=== PATIENT | female | born 1960 | race Caucasian/White ===

== ENCOUNTER 2019-11-07 19:13 | Inpatient (IN) | payer OTHER, SELFPAY ==
[~2019-11-07] VITALS: Ht 162.6 cm; Wt 63.6 kg
[2019-11-07] MEDS ORDERED: MULTCAP PO ×2 (19:42)
[2019-11-07] MEDS ORDERED: fentaNYL 100 MCG/2 ML INJECTION (J3010) IV ONE (19:45)
[2019-11-07] MEDS ORDERED: ONDANSETRON 4MG/2ML VIAL (J2405) IV ONE (19:45)
[2019-11-07 19:46] LABS: BASO % 0.2 % (0.0-1.0); HEMATOCRIT 36.7 % (36.0-47.0); HEMOGLOBIN 12.3 g/dl (12.0-15.5); LYMPH # 0.7 10^3/uL (1.5-5.0); LYMPH % 6.4 % (24.0-44.0); MEAN CORPUSCULAR HEMOGLOBIN 31.4 pg (27.0-33.0); MEAN CORPUSCULAR HGB CONC 33.5 g/dl (32.0-36.5); MEAN CORPUSCULAR VOLUME 93.6 fl (80.0-96.0); MONO # 0.7 10^3/uL (0.0-0.8); MONO % 6.5 % (0.0-5.0); NEUTROPHILS # 9.7 10^3/uL (1.5-8.5); NEUTROPHILS % 86.5 % (36.0-66.0); PLATELET COUNT, AUTOMATED 264 10^3/uL (150-450); RED BLOOD COUNT 3.92 10^6/uL (4.00-5.40); WHITE BLOOD COUNT 11.2 10^3/uL (4.0-10.0)
[2019-11-07 19:57] LABS: PROTHROMBIN TIME 12.9 SECONDS (11.8-14.0)
[2019-11-07 20:15] LABS: BLOOD UREA NITROGEN 10 MG/DL (7-18); CALCIUM LEVEL 8.9 MG/DL (8.8-10.2); CARBON DIOXIDE LEVEL 23 MEQ/L (21-32); CHLORIDE LEVEL 99 MEQ/L (98-107); CK-MB VALUE MASS 1.1 NG/ML (<3.6); CPK CREATINE PHOSPHOKINASE 102 U/L (26-192); CREATININE FOR GFR 0.64 MG/DL (0.55-1.30); GLOMERULAR FILTRATION RATE > 60.0 (>45); GLUCOSE, FASTING 159 MG/DL (70-100); MB/CK RELATIVE INDEX 1.08 (< OR =4); POTASSIUM SERUM 3.7 MEQ/L (3.5-5.1); SODIUM LEVEL 132 MEQ/L (136-145)
[2019-11-07] MEDS ORDERED: LIDOCAINE 2% 5ML JELLY UROJET TOP ONE (20:30)
[2019-11-07] MEDS ORDERED: LORazepam 2 MG/ML VIAL (J2060) IV STA (20:49)
[2019-11-07] MEDS ORDERED: HEPARIN SOD (PORCINE) 5000 UNITS/ML VIAL SC ONE (21:00)
[2019-11-07] MEDS ORDERED: HYDROMORPHONE HCL 0.5 MG/ 0.5 ML SYRINGE (J1170 PER 1) IV PRN (21:00)
[2019-11-07] MEDS: HYDROMORPHONE HCL 0.5 MG/ 0.5 ML SYRINGE (J1170 PER 1) IV PRN (21:20)
[2019-11-07] MEDS ORDERED: D5W/0.45% SODIUM CHLORIDE 1,000 ML IV SCH (22:30)
--- NOTE | 2019-11-07 22:56 | HPEPDOC ---
General Date of Admission Nov 07, 2019 at 20:53 Date of Service: Nov 07, 2019 Chief Complaint The patient is a 59-year-old female Who presented to the emergency room with right hip pain History of Present Illness Patient is a 59-year-old female with no significant past medical history who presented to the emergency room after she had complained of significant right hip pain. Patient reported that today she was with her grandson who was standing on a chair. Patient reported that her grandson was about to fall out of the chair, so she went to go catch him and subsequently fell on her right hip and landed on the hardwood floor of her home. Patient reported that immediately she be ENT experience 10/10 pain, sharp / burning pain. Patient reported that the pain was occurring at her right hip and right groin. Patient reported that any movement caused worsening of the pain. The only alleviation that she noted was with medications received by EMS. Patient denied any loss of consciousness. Denied any head trauma. Denied chest pain, shortness of breath, palpitations, cough, nausea, vomiting, abdominal pain, constipation, diarrhea, urinary discomfort or experiencing any fevers or chills recently. Home Medications Scheduled Multivitamin (Multivitamins) 1 Each Capsule, 1 CAP PO DAILY, (Reported) Allergies Coded Allergies: morphine (Verified Allergy, Mild, 11/07/19) ciprofloxacin (Verified Allergy, Unknown, 11/07/19) erythromycin base (Verified Allergy, Unknown, 11/07/19) Past Medical History Medical History Patient denies any past medical history Surgical History Patient denies any prior surgeries Family History - Mother with a history of stomach problems, coronary artery disease requiring type past and breast cancer - Father with a history of heart attack Social History - Denies the use of tobacco or illicit drugs; patient reports use of social alcohol - Denies recent travel or sick contacts - Lives with in [place] - Occupation; 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 Review of Systems Other systems 10 point review of systems complete, all negative otherwise stated in HPI Vital Signs - Vitals: BP 132/70, HR 84, RR 20, Sat 97%RA, Temp 100.2F - General: Lying in bed, appears comfortable, speaking in full sentences, AAOx3 - HEENT: NC, AT, PERRLA, EOMI - CVS: RRR, +S1S2 - Lungs: Fair air entry bilaterally, No appreciable wheezing / rales / rhonchi - Abdomen: Soft, Non-distended, Non-tender - Extremities: No lower extremity edema, No calf tenderness, - Neuro: No focal motor or sensory deficit, right hip with restricted range of motion - 2/2 pain - Skin: No visible rashes Laboratory Data Labs 24H Laboratory Tests 2 11/07/19 19:35: Immature Granulocyte % (Auto) 0.4, Neutrophils (%) (Auto) 86.5H, Lymphocytes (%) (Auto) 6.4L, Monocytes (%) (Auto) 6.5H, Eosinophils (%) (Auto) 0.0, Basophils (%) (Auto) 0.2, Neutrophils # (Auto) 9.7H, Lymphocytes # (Auto) 0.7L, Monocytes # (Auto) 0.7, Eosinophils # (Auto) 0.0, Basophils # (Auto) 0.0, Nucleated Red Blood Cells % (auto) 0.0, Prothrombin Time 12.9, Prothromb Time International Ratio 1.00, Anion Gap 10, Glomerular Filtration Rate > 60.0, Calcium Level 8.9, Total Creatine Kinase 102, Creatine Kinase MB 1.1, Creatine Kinase MB Relative Index 1.08 11/07/19 21:29: Urine Color YELLOW, Urine Appearance CLOUDYH, Urine pH 7.0, Urine Specific [place] 1.014, Urine Protein NEGATIVE, Urine Glucose (UA) 1+H, Urine Ketones 1+H, Urine Blood NEGATIVE, Urine Nitrite NEGATIVE, Urine Bilirubin NEGATIVE, Urine Urobilinogen 0.2, Urine Leukocyte Esterase NEGATIVE, Urine WBC (Auto) 1, Urine RBC (Auto) 8H, Urine Hyaline Casts (Auto) 0, Urine Bacteria (Auto) 3+H, Urine Squamous Epithelial Cells 0, Urine Amorphous Sediment SMALLH, Urine Sperm (Auto) CBC/BMP Laboratory Tests 11/07/19 19:35 Plan / VTE VTE Prophylaxis Ordered?: Yes Plan Plan Right hip pain - 2/2 right femur fracture - likely 2/2 mechanical fall - Presented to the ER with complaints of right hip pain after a mechanical fall - Physical with restricted movement; reports pain is better tolerated - Lab work is relatively unrevealing - Chest x-ray was reviewed by myself and does not reveal any significant abnormalities - X-ray of hip and femur were appreciated; does reveal proximal fracture of the femur - EKG was reviewed and was in normal sinus rhythm with a QTC of 416, no ST segment deviations or T-wave inversions were noted - Case was discussed with Dr. George, orthopedic surgery; patient will be taken to the operating room tomorrow morning - Currently patient is medically optimized for low risk procedure with low risk - Will keep patient NPO post-midnight and start IV fluids while NPO Leukocytosis - likely 2/2 reactive etiology, less likely 2/2 infectious etiology - Review of systems negative for any source of infection - Currently patient is hemodynamically stable and afebrile - Will hold off on antibiotic therapy at this time Hyponatremia (mild) - like 2/2 hypotonic possibly 22/ hypovolemic / euvolemic etiology - Will check osmolality, electrolytes, thyroid function, cortisol - Will start IV fluid hydration DVT prophylaxis - Will give single dose of Heparin SQ, providing coverage for 8 hours MAXINE VALIENTE MD Nov 07, 2019 22:56
--- NOTE | 2019-11-07 23:06 | CR.PDOC ---
General Date of Consultation: Nov 07, 2019 Primary Care Physician: MAXINE VALIENTE MD Attending Physician: MIS BINGHAM MD Consultation REASON FOR CONSULTATION/CHIEF COMPLAINT: R hip fracture. HISTORY OF PRESENT ILLNESS: Patient is a 59 y/o female who sustained a mechanical fall from standing height resulting in immediate right hip pain and inability to bear weight. She denies any antecedent hip pain. Denies any associated numbness, tingling, or burning sensations. ALLERGIES: Please see below. HOME MEDICATIONS: Please see below. PAST MEDICAL HISTORY: 1. hypertension PAST SURGICAL HISTORY: none FAMILY HISTORY: non contributory SOCIAL HISTORY: no tobacco, alcohol, or illicit drug use. Operates a day care center. Lives with . REVIEW OF SYSTEMS: CONSTITUTIONAL: No fevers, chills, or night sweats. HEENT: + glasses CARDIOVASCULAR: No chest pain, palpitations. RESPIRATORY: No cough, wheeze. MUSCULOSKELETAL: R hip pain per HPI. GASTROINTESTINAL: No nausea, vomiting, diarrhea. NEUROLOGICAL: No headache, numbness, burning sensations. PHYSICAL EXAMINATION: VITAL SIGNS: Please see below. GENERAL APPEARANCE: Well nourished female, appears stated age, no acute distress. HEENT: Normocephalic, atraumatic. RESPIRATORY: Non labored breathing. CARDIOVASCULAR: 2+ DP/PT pulses, BCR all digits RLE. EXTREMITIES: Focused exam of the R hip demonstrates no open wounds or abrasions. The hip is held in a flexed, externally rotated position. Patient is able to flex/extend toes and ankle. NEUROLOGICAL: Sensation and motor intact in RLE femoral, tibial, sural, saphenous, SPN, DPN distribution. Radiographs: Plain radiographs of the pelvis, right hip and right femur demonstrate a displaced intertrochanteric femur fracture ASSESSMENT: 59 y/o female with a displaced R proximal femur fracture PLAN: I had a long discussion with the patient about the natural history of her injury. The risks, benefits, indications, and alternatives of operative and nonoperative management were discussed and I recommended surgical management with R hip cephalomedullary nail fixation. The risks of infection, nerve/blood vessel injury, thromboembolic event, nonunion, malunion, and hardware failure were discussed and the patient expressed understanding and provided written informed consent for R hip open versus closed reduction and cephalomedullary nail fixation. I counseled the patient that I will be her operating surgeon but her follow up care will be conducted by [facility]. She expressed understanding with this arrangement and agreed to proceed. -NPO at midnight -Surgery tomorrow pending clearance -WBAT post operatively Vital Signs/I&O Vital Signs Date Time Temp Pulse Resp B/P (MAP) Pulse Ox O2 Delivery O2 Flow Rate FiO2 11/07/19 21:34 100.2 91 20 160/80 97 Room Air Laboratory Data Labs 24H Laboratory Tests 2 11/07/19 19:35: Immature Granulocyte % (Auto) 0.4, Neutrophils (%) (Auto) 86.5H, Lymphocytes (%) (Auto) 6.4L, Monocytes (%) (Auto) 6.5H, Eosinophils (%) (Auto) 0.0, Basophils (%) (Auto) 0.2, Neutrophils # (Auto) 9.7H, Lymphocytes # (Auto) 0.7L, Monocytes # (Auto) 0.7, Eosinophils # (Auto) 0.0, Basophils # (Auto) 0.0, Nucleated Red Blood Cells % (auto) 0.0, Prothrombin Time 12.9, Prothromb Time International Ratio 1.00, Anion Gap 10, Glomerular Filtration Rate > 60.0, Calcium Level 8.9, Total Creatine Kinase 102, Creatine Kinase MB 1.1, Creatine Kinase MB Relative Index 1.08 11/07/19 21:29: Urine Color YELLOW, Urine Appearance CLOUDYH, Urine pH 7.0, Urine Specific [place] 1.014, Urine Protein NEGATIVE, Urine Glucose (UA) 1+H, Urine Ketones 1+H, Urine Blood NEGATIVE, Urine Nitrite NEGATIVE, Urine Bilirubin NEGATIVE, Urine Urobilinogen 0.2, Urine Leukocyte Esterase NEGATIVE, Urine WBC (Auto) 1, Urine RBC (Auto) 8H, Urine Hyaline Casts (Auto) 0, Urine Bacteria (Auto) 3+H, Urine Squamous Epithelial Cells 0, Urine Amorphous Sediment SMALLH, Urine Sperm (Auto) CBC/BMP Laboratory Tests 11/07/19 19:35 Allergies Coded Allergies: morphine (Verified Allergy, Mild, 11/07/19) ciprofloxacin (Verified Allergy, Unknown, 11/07/19) erythromycin base (Verified Allergy, Unknown, 11/07/19) Home Medications Scheduled Multivitamin (Multivitamins) 1 Each Capsule, 1 CAP PO DAILY, (Reported) MIS BINGHAM MD Nov 07, 2019 23:06
[2019-11-07 23:10] VITALS: BP 148/90
[2019-11-07] MEDS: D5W/0.9% SODIUM CHLORIDE 1,000 ML IV SCH (23:18)
[2019-11-07] MEDS: ACETAMINOPHEN TAB 650MG DOSE (2X325MG) PO PRN (23:19)
[2019-11-07 23:27] LABS: FREE T4 1.11 NG/DL (0.76-1.46); THYROID STIMULATING HORMONE 2.1 uIU/ML (0.358-3.740)
[2019-11-08] VITALS (7 sets, daily range): BP systolic 125–142; BP diastolic 74–89
[2019-11-08] MEDS ORDERED: ceFAZolin SOD 2 GM in IV 1 EA IV ONE (06:00)
[2019-11-08 06:58] LABS: BASO % 0.3 % (0.0-1.0); EOS % 0.3 % (0.0-3.0); HEMATOCRIT 34.7 % (36.0-47.0); HEMOGLOBIN 11.5 g/dl (12.0-15.5); LYMPH # 1.5 10^3/uL (1.5-5.0); LYMPH % 18.4 % (24.0-44.0); MEAN CORPUSCULAR HEMOGLOBIN 31.9 pg (27.0-33.0); MEAN CORPUSCULAR HGB CONC 33.1 g/dl (32.0-36.5); MEAN CORPUSCULAR VOLUME 96.4 fl (80.0-96.0); MONO % 12.9 % (0.0-5.0); NEUTROPHILS # 5.4 10^3/uL (1.5-8.5); NEUTROPHILS % 67.8 % (36.0-66.0); PLATELET COUNT, AUTOMATED 237 10^3/uL (150-450); WHITE BLOOD COUNT 7.9 10^3/uL (4.0-10.0)
[2019-11-08] MEDS: HYDROMORPHONE HCL 0.5 MG/ 0.5 ML SYRINGE (J1170 PER 1) IV PRN ×3 (07:10→15:35)
[2019-11-08 07:20] LABS: BLOOD UREA NITROGEN 8 MG/DL (7-18); CALCIUM LEVEL 8.2 MG/DL (8.8-10.2); CARBON DIOXIDE LEVEL 27 MEQ/L (21-32); CHLORIDE LEVEL 102 MEQ/L (98-107); CREATININE FOR GFR 0.51 MG/DL (0.55-1.30); GLOMERULAR FILTRATION RATE > 60.0 (>45); GLUCOSE, FASTING 119 MG/DL (70-100); MAGNESIUM LEVEL 2.1 MG/DL (1.8-2.4); POTASSIUM SERUM 3.7 MEQ/L (3.5-5.1); SODIUM LEVEL 134 MEQ/L (136-145)
--- NOTE | 2019-11-08 08:31 | REP ---
Pelvis right hip: Three views. History: Trauma. Findings: AP view of the pelvis shows an intact bony pelvic ring. No pelvic or sacral fracture is seen. There is diffuse osteoporosis. AP and lateral views of the right hip demonstrate a comminuted intertrochanteric fracture of the right hip in varus. Left hip is unremarkable. Impression: Comminuted intertrochanteric right hip fracture in varus position. Electronically Signed by Parminder Acosta MD 11/08/2019 08:22 A
--- NOTE | 2019-11-08 08:32 | REP ---
Right femur series: Three views. History: Trauma. Findings: Three views of the right femur demonstrate a comminuted intertrochanteric fracture in varus position at the hip. Femoral diaphysis and distal femur appear intact on these views. There is diffuse osteopenia. Impression: Comminuted intertrochanteric fracture right hip. No distal fracture seen. Electronically Signed by Parminder Acosta MD 11/08/2019 08:24 A
--- NOTE | 2019-11-08 08:36 | REP ---
CHEST X-RAY: SINGLE AP VIEW. HISTORY: Preop. No comparison study. FINDINGS: The patient is rotated slightly to the left. Mild cardiomegaly is observed. There is diffuse osteoporosis. The lungs are well inflated and clear. Pleural angles are sharp. Pulmonary vasculature is not felt to be increased on the supine film. IMPRESSION: No active disease. Electronically Signed by Parminder Acosta MD 11/08/2019 08:57 A
[2019-11-08] MEDS: MULTIVITAMINS/MINERALS THERAP 1 TAB PO SCH (08:38)
--- NOTE | 2019-11-08 10:13 | IPNPDOC ---
Date Seen The patient was seen on 11/08/19. Progress Note SUBJECTIVE: 59-year-old female with no significant past medical history, was admitted for right hip fracture status post mechanical fall. She is feeling well in the morning, pain is well controlled, no complaints other than hip pain at this time. She is due for surgery later today and has been medically cleared. She denies any shortness of breath, chest pain, nausea, vomiting, abdominal pain or diarrhea. 10 point review of system is negative except for above PHYSICAL EXAMINATION: VITAL SIGNS: Please see below. GENERAL: No distress HEENT: Normocephalic, atraumatic, moist mucous membranes NECK: Supple CARDIOVASCULAR EXAMINATION: S1, S2, no murmurs RESPIRATORY EXAMINATION: Clear to auscultation, no wheezing ABDOMINAL EXAMINATION: Soft, nontender, nondistended, positive bowel sounds EXTREMITIES: Right hip tender to palpation, right lower extremity shorter than left lower extremity SKIN: No rash NEUROLOGICAL EXAMINATION: Alert and oriented 3, no focal deficits PSYCHIATRIC EXAMINATION: Calm and cooperative LABORATORY DATA, IMAGING STUDIES, MICROBIOLOGY: Please see below. ASSESSMENT AND PLAN: 59-year-old female with no significant past medical history is admitted for right hip fracture status post mechanical fall. PROBLEMS: 1. Right hip fracture: Status post mechanical fall, scheduled for surgical repair later today, medically cleared for procedure, pain control, IV fluids, preoperative antibiotics as per orthopedic surgery. VS, I&O, 24H, Fishbone Vital Signs/I&O Vital Signs Date Time Temp Pulse Resp B/P (MAP) Pulse Ox O2 Delivery O2 Flow Rate FiO2 11/08/19 07:45 18 11/08/19 06:00 98.5 92 142/89 (106) 95 Room Air I&O- Last 24 Hours up to 6 AM 11/08/19 06:00 Intake Total 540 ml Output Total 675 ml Balance -135 ml Laboratory Data 24H LABS Laboratory Tests 2 11/07/19 19:35: Immature Granulocyte % (Auto) 0.4, Neutrophils (%) (Auto) 86.5H, Lymphocytes (%) (Auto) 6.4L, Monocytes (%) (Auto) 6.5H, Eosinophils (%) (Auto) 0.0, Basophils (%) (Auto) 0.2, Neutrophils # (Auto) 9.7H, Lymphocytes # (Auto) 0.7L, Monocytes # (Auto) 0.7, Eosinophils # (Auto) 0.0, Basophils # (Auto) 0.0, Nucleated Red Blood Cells % (auto) 0.0, Prothrombin Time 12.9, Prothromb Time International Ratio 1.00, Anion Gap 10, Glomerular Filtration Rate > 60.0, Calcium Level 8.9, Total Creatine Kinase 102, Creatine Kinase MB 1.1, Creatine Kinase MB Relative Index 1.08 11/07/19 21:29: Urine Color YELLOW, Urine Appearance CLOUDYH, Urine pH 7.0, Urine Specific [place] 1.014, Urine Protein NEGATIVE, Urine Glucose (UA) 1+H, Urine Ketones 1+H, Urine Blood NEGATIVE, Urine Nitrite NEGATIVE, Urine Bilirubin NEGATIVE, Urine Urobilinogen 0.2, Urine Leukocyte Esterase NEGATIVE, Urine WBC (Auto) 1, Urine RBC (Auto) 8H, Urine Hyaline Casts (Auto) 0, Urine Bacteria (Auto) 3+H, Urine Squamous Epithelial Cells 0, Urine Amorphous Sediment SMALLH, Urine Sperm (Auto) 11/07/19 22:58: Osmolality 277L, Thyroid Stimulating Hormone (TSH) 2.100, Free Thyroxine 1.11 11/08/19 06:27: Immature Granulocyte % (Auto) 0.3, Neutrophils (%) (Auto) 67.8H, Lymphocytes (%) (Auto) 18.4L, Monocytes (%) (Auto) 12.9H, Eosinophils (%) (Auto) 0.3, Basophils (%) (Auto) 0.3, Neutrophils # (Auto) 5.4, Lymphocytes # (Auto) 1.5, Monocytes # (Auto) 1.0H, Eosinophils # (Auto) 0.0, Basophils # (Auto) 0.0, Nucleated Red Blood Cells % (auto) 0.0, Anion Gap 5L, Glomerular Filtration Rate > 60.0, Ca lcium Level 8.2L, Magnesium Level 2.1 CBC/BMP Laboratory Tests 11/07/19 19:35 11/08/19 06:27 JAVIER RODRIGUEZ MD Nov 08, 2019 10:13
[2019-11-08] MEDS: D5W/0.9% SODIUM CHLORIDE 1,000 ML IV SCH ×2 (11:27→23:45)
--- NOTE | 2019-11-08 12:48 | ECGEPIP ---
[facility] - ED Test Date: 2019-11-07 Pat Name: KVNG CREWS Department: Room: [place] [address] Gender: Female Program Aide: lynsey : 1960 Requested By: TABITHA IBARRA Order Number: [id number] Reading MD: Tess Gautam Measurements Intervals Jones Rate: 89 P: 68 OR: 164 QRS: 70 QRSD: 89 T: 62 QT: 369 QTc: 450 Interpretive Statements SINUS RHYTHM No prior Electronically Signed on 11-08-2019 12:48:24 EST by Tess Gautam
[2019-11-08] MEDS: ACETAMINOPHEN TAB 650MG DOSE (2X325MG) PO PRN ×2 (15:35→22:28)
[2019-11-08] MEDS ORDERED: LIDOCAINE 2% INJ 100 MG/5 ML SDV (FOR ANES.) As Ordered ONE (16:02)
[2019-11-08] MEDS ORDERED: propofoL 200 MG/20 ML VIAL As Ordered ONE (16:02)
[2019-11-08] MEDS ORDERED: MIDAZOLAM INJ 2 MG/2 ML VIAL (J2250) As Ordered ONE (16:04)
[2019-11-08] MEDS ORDERED: fentaNYL 100 MCG/2 ML INJECTION (J3010) As Ordered ONE ×2 (16:05→18:54)
[2019-11-08] MEDS ORDERED: ONDANSETRON 4MG/2ML VIAL (J2405) As Ordered ONE (16:06)
[2019-11-08] MEDS ORDERED: ceFAZolin 2 GM/D5W 50 ML IV BAG (J0690 PER 500MG) As Ordered ONE (17:06)
[2019-11-08] MEDS ORDERED: KETAMINE HCL 200 MG/20 ML VIAL As Ordered ONE (17:31)
[2019-11-08] MEDS: fentaNYL 100 MCG/2 ML INJECTION (J3010) IV PRN ×3 (18:51→19:21)
[2019-11-08] MEDS ORDERED: PERCOCET 5MG/325MG TAB As Ordered ONE (18:54)
[2019-11-08] MEDS ORDERED: PERCOCET 5MG/325MG TAB PO PRN (19:30)
[2019-11-08] MEDS ORDERED: ONDANSETRON 4MG/2ML VIAL (J2405) IV PRN (19:30)
[2019-11-08] MEDS ORDERED: LR 1,000 ML IV SCH (19:30)
[2019-11-09 00:19] VITALS: BP 121/73
--- NOTE | 2019-11-09 01:40 | REP ---
Clinical: Status post fixation Technique: AP and cross-table lateral views. Findings: The patient is status fixation with intramedullary taylor for intertrochanteric right femoral fracture with normal positioning. Overlying postsurgical changes appreciated. Impression: Satisfactory open reduction and fixation for intertrochanteric fracture. Electronically Signed by Brett Hathaway MD 11/09/2019 01:30 A
--- NOTE | 2019-11-09 02:06 | REP ---
Clinical: Intertrochanteric fracture fixation. Technique: Intraoperative fluoroscopic imaging using portable C-arm technique. Findings: Multiple intraoperative images demonstrate the patient to be status post intramedullary taylor through the right femoral shaft and compression screw through the femoral neck. Satisfactory alignment at the intertrochanteric fracture site noted. Total fluoroscopic time 2 minutes 8 seconds. Impression: Status post fixation for intertrochanteric right femur fracture. Electronically Signed by Brett Hathaway MD 11/09/2019 01:57 A
[2019-11-09] MEDS: traMADol 50 MG TAB PO PRN ×3 (03:18→18:41)
[2019-11-09 05:12] VITALS: BP 127/73
[2019-11-09] MEDS: ACETAMINOPHEN TAB 650MG DOSE (2X325MG) PO PRN ×3 (05:15→21:21)
[2019-11-09] MEDS: ceFAZolin SOD 2 GM in IV 1 EA IV SCH ×3 (06:07→22:26)
[2019-11-09 06:29] LABS: BASO % 0.4 % (0.0-1.0); EOS # 0.1 10^3/uL (0.0-0.5); EOS % 0.6 % (0.0-3.0); HEMATOCRIT 30.5 % (36.0-47.0); LYMPH # 1.2 10^3/uL (1.5-5.0); LYMPH % 15.4 % (24.0-44.0); MEAN CORPUSCULAR HEMOGLOBIN 31.8 pg (27.0-33.0); MEAN CORPUSCULAR HGB CONC 32.8 g/dl (32.0-36.5); MEAN CORPUSCULAR VOLUME 97.1 fl (80.0-96.0); MONO # 0.9 10^3/uL (0.0-0.8); MONO % 12.1 % (0.0-5.0); NEUTROPHILS # 5.5 10^3/uL (1.5-8.5); NEUTROPHILS % 71.2 % (36.0-66.0); PLATELET COUNT, AUTOMATED 207 10^3/uL (150-450); RED BLOOD COUNT 3.14 10^6/uL (4.00-5.40); WHITE BLOOD COUNT 7.8 10^3/uL (4.0-10.0)
[2019-11-09 07:06] LABS: BLOOD UREA NITROGEN 6 MG/DL (7-18); CALCIUM LEVEL 8.3 MG/DL (8.8-10.2); CARBON DIOXIDE LEVEL 26 MEQ/L (21-32); CHLORIDE LEVEL 97 MEQ/L (98-107); CREATININE FOR GFR 0.44 MG/DL (0.55-1.30); GLOMERULAR FILTRATION RATE > 60.0 (>45); GLUCOSE, FASTING 92 MG/DL (70-100); MAGNESIUM LEVEL 1.9 MG/DL (1.8-2.4); POTASSIUM SERUM 3.5 MEQ/L (3.5-5.1); SODIUM LEVEL 131 MEQ/L (136-145)
[2019-11-09] MEDS ORDERED: ACET-683 PO ×2 (07:40→07:51)
[2019-11-09] MEDS ORDERED: XARE10TA PO (07:40)
[2019-11-09] MEDS ORDERED: TRAM50TA2 PO (07:40)
[2019-11-09] MEDS: MULTIVITAMINS/MINERALS THERAP 1 TAB PO SCH (08:20)
[2019-11-09] MEDS: MIRALAX *UNIT DOSE* 17GM PACKET PO SCH (09:00)
[2019-11-09] MEDS: MOM 30ML SUSPENSION UDC PO SCH (09:00)
--- NOTE | 2019-11-09 09:05 | RO ---
DATE OF PROCEDURE: 11/08/2019 PREOPERATIVE DIAGNOSIS: Right displaced intertrochanteric femur fracture. POSTOPERATIVE DIAGNOSIS: Right displaced intertrochanteric femur fracture. PROCEDURE PERFORMED: Right proximal femur closed reduction cephalomedullary nail fixation. SURGEON: Dr. Travis George CURRICULUM ASSISTANT: None. ANESTHESIA PROVIDER: Dr. Jael Montes ANESTHESIA: Single shot spinal. IMPLANTS: Synthes TFN Advance 11 mm x 360 mm nail with 85 mm helical blade and 38 mm and 40 mm x 5mm distal interlocking screws. ESTIMATED BLOOD LOSS: 150 mL. ANTIBIOTICS: 2 grams IV Ancef within 1 hour of incision. MATERIAL SENT TO LAB: None. COMPLICATIONS: None. INDICATIONS FOR PROCEDURE: Leonor Steele is a 59 year-old female, community ambulator with no assistive devices who sustained a mechanical fall from standing height resulting in a displaced right intertrochanteric femur fracture. The patient was admitted to hospitalist service and medically optimized prior to surgery. I discussed with the patient the nature of her injury and discussed the risks, benefits, indications, alternatives of operative versus nonoperative management and recommended right hip cephalomedullary nail fixation. I counseled her that I will be her surgeon but her followup care will be conducted by [facility]. She expressed understanding of this arrangement and provided written informed consent for right hip closed versus open reduction and internal fixation. INTRAOPERATIVE FINDINGS: Anatomic reduction was obtained and fracture was stable after fixation. DESCRIPTION OF PROCEDURE: The patient was identified in preop holding and surgical site was marked. She was then brought to the operating room where she was given single shot spinal anesthetic by Anesthesia Service. She was then positioned supine on the fracture table with all bony prominences appropriately padded. SCDs placed on nonoperative extremity for DVT prophylaxis. I used a fracture table to obtain provisional reduction. I confirmed on C-arm fluoroscopy that we obtained anatomic reduction of the fracture. The patient was then prepped and draped usual sterile fashion. A final time-out was performed. I made a 3 cm incision approximately three fingerbreadths proximal to the tip of the greater trochanter. I dissected through skin and subcutaneous tissue. I introduced the 3.2 mm threaded guide pin and confirmed that was on the tip of the greater trochanter and centered on lateral imaging. I advanced to the level of the lesser trochanter. I then introduced the 60 mm opening reamer followed by placement of the ball-tip guidewire down to the level of the superior pole of the patella centered on AP and lateral fluoroscopic imaging. I then measured to length of 360 mm and elected to place an 11 x 360 mm nail, this was then followed by a single pass of the 12.5 mm end cutting reamer and followed by placement of the nail. The nail was placed in appropriate depth and confirmed using C-arm fluoroscopy. I then made accessory lateral incision for placement of the helical blade. The guide for the helical blade was placed flush to the lateral femoral cortex. The 3.2 mm threaded guide pin was then advanced centered on the femoral neck on AP and lateral fluoroscopic imaging. Measured and elected to place an 85 mm helical blade. I then reamed and inserted the helical blade in standard fashion. I then took fluoroscopic images confirming no intra-articular penetration of implants. I then proceeded to lock the nail proximally followed by placing two distal interlocking screws through small stab incisions using standard perfect [place]k technique. After placement of two distal interlocking screws and obtained final fluoroscopic images of the knee and hip, confirming anatomic reduction of the fracture and adequate placement of all hardware. At this point, the wound was then thoroughly irrigated with normal saline and closed in layers. The two proximal wounds were closed with 2-0 Vicryl in the subcutaneous layer and rebeca for the skin. The stab incisions for the distal interlocking screws were closed with rebeca. Sterile dressings were applied, thus ending the procedure. I was present and scrubbed in for all portions of the case. POSTOPERATIVE PLAN: The patient will return to the hospital floor. She will be weightbearing as tolerated. She will begin physical therapy tomorrow for ambulation with a walker. She will be on Xarelto for DVT prophylaxis and discharged by hospitalist when criteria are met. ETHAN
[2019-11-09 10:00] VITALS: BP 125/73
[2019-11-09 10:34] LABS: CORTISOL BASELINE 41.9 UG/DL (4.3-22.4)
--- NOTE | 2019-11-09 11:23 | IPNPDOC ---
Subjective Date Seen The patient was seen on 11/09/19. Subjective Chief Complaint/HPI Patient's comfortable in no distress, status post right hip surgery. Physical therapy in progress General: Denies: ROS Unobtainable, Chills, Night Sweats, Fatigue, Malaise, Normal Appetite, Other Symptoms Skin: Denies: Rash, Lesions, Jaundice, Bruising, Itching, Dry, Breakdown, Nail Changes, Other Pulmonary: Denies: Dyspnea, Cough, Pleuritic Chest Pain, Other Symptoms Cardiovascular: Denies: Chest Pain, Palpitations, Orthopnea, Paroxysmal Noc. Dyspnea, Edema, Lt Headedness, Other Symptoms Gastrointestinal: Denies: Nausea, Vomiting, Abdominal Pain, Diarrhea, Constipation, Melena, Hematochezia, Other Symptoms Endocrine: Denies: Polydipsia, Polyphagia, Polyuria, Heat Intolerance, Cold Intolerance, Other Endocrine Sx Musculoskeletal: Denies: Neck Pain, Back Pain, Shoulder Pain, Arm Pain, Hand Pain, Leg Pain, Foot Pain, Joint Pain, Muscle Pain, Spasms, Other Symptoms Neurological: Denies: Weakness, Numbness, Incoordination, Change in speech, Confusion, Seizures, Other Symptoms Objective Physical Examination General Exam: Positive: Alert Chest Exam: Positive: Clear to auscultation, Normal air movement Heart Exam: Positive: Rate Normal, Normal S1, Normal S2 Abdomen Exam: Positive: Normal bowel sounds, Soft Extremity Exam: Positive: Normal pulses Skin Exam: Positive: Nl turgor and temperature Neuro Exam: Positive: Strength at 5/5 X4 ext, Cranial Nerves 3-12 NL Assessment /Plan Problems (1) Hip fracture, right Status: Acute Problem Text: Status post right hip ORIF PT in progress Will request ARU eval Pain management Continue all present meds Plan/VTE VTE Prophylaxis Ordered?: Yes VS, I&O, 24H, Fishbone Vital Signs/I&O Vital Signs Date Time Temp Pulse Resp B/P (MAP) Pulse Ox O2 Delivery O2 Flow Rate FiO2 11/09/19 10:00 98.3 85 17 125/73 (90) 96 Room Air 11/08/19 23:19 1.0 I&O- Last 24 Hours up to 6 AM 11/09/19 06:00 Intake Total 2880 ml Output Total 1950 ml Balance 930 ml Laboratory Data 24H LABS Laboratory Tests 2 11/09/19 05:42: Immature Granulocyte % (Auto) 0.3, Neutrophils (%) (Auto) 71.2H, Lymphocytes (%) (Auto) 15.4L, Monocytes (%) (Auto) 12.1H, Eosinophils (%) (Auto) 0.6, Basophils (%) (Auto) 0.4, Neutrophils # (Auto) 5.5, Lymphocytes # (Auto) 1.2L, Monocytes # (Auto) 0.9H, Eosinophils # (Auto) 0.1, Basophils # (Auto) 0.0, Nucleated Red Blood Cells % (auto) 0.0, Anion Gap 8, Glomerular Filtration Rate > 60.0, Calcium Level 8.3L, Magnesium Level 1.9 CBC/BMP Laboratory Tests 11/09/19 05:42 SURYA SHIELDS MD Nov 09, 2019 11:23
--- NOTE | 2019-11-09 13:47 | REP ---
Right hip: Three views. History: Lateral view only. Comparison radiographs November 08, 2019. Findings: Cross-table lateral portably obtained views demonstrate an intramedullary taylor in the proximal femur. The femoral neck pin appears centrally located in the femoral head on the cross-table lateral view. Lateral skin rebeca are seen. Electronically Signed by Parminder Acosta MD 11/09/2019 07:48 P
[2019-11-09] MEDS: RIVAROXABAN 10 MG TAB (XARELTO) PO SCH (18:39)
[2019-11-09 22:00] VITALS: BP 123/73
[2019-11-10] MEDS: traMADol 50 MG TAB PO PRN ×4 (02:49→19:51)
[2019-11-10 06:00] VITALS: BP 149/83
[2019-11-10 06:33] LABS: BASO % 0.3 % (0.0-1.0); EOS # 0.1 10^3/uL (0.0-0.5); EOS % 0.8 % (0.0-3.0); HEMATOCRIT 28.4 % (36.0-47.0); HEMOGLOBIN 9.8 g/dl (12.0-15.5); LYMPH # 0.9 10^3/uL (1.5-5.0); LYMPH % 12.7 % (24.0-44.0); MEAN CORPUSCULAR HEMOGLOBIN 32.5 pg (27.0-33.0); MEAN CORPUSCULAR HGB CONC 34.5 g/dl (32.0-36.5); MONO % 13.2 % (0.0-5.0); NEUTROPHILS # 5.4 10^3/uL (1.5-8.5); NEUTROPHILS % 72.7 % (36.0-66.0); PLATELET COUNT, AUTOMATED 200 10^3/uL (150-450); RED BLOOD COUNT 3.02 10^6/uL (4.00-5.40); WHITE BLOOD COUNT 7.4 10^3/uL (4.0-10.0)
[2019-11-10 06:59] LABS: BLOOD UREA NITROGEN 6 MG/DL (7-18); CALCIUM LEVEL 8.1 MG/DL (8.8-10.2); CARBON DIOXIDE LEVEL 30 MEQ/L (21-32); CHLORIDE LEVEL 98 MEQ/L (98-107); CREATININE FOR GFR 0.31 MG/DL (0.55-1.30); GLOMERULAR FILTRATION RATE > 60.0 (>45); GLUCOSE, FASTING 98 MG/DL (70-100); POTASSIUM SERUM 3.4 MEQ/L (3.5-5.1); SODIUM LEVEL 132 MEQ/L (136-145)
[2019-11-10] MEDS ORDERED: POTASSIUM CHLORIDE 10 MEQ SR TABLET PO ONE (07:30)
[2019-11-10] MEDS: MULTIVITAMINS/MINERALS THERAP 1 TAB PO SCH (08:12)
[2019-11-10] MEDS: MOM 30ML SUSPENSION UDC PO SCH ×2 (08:12→09:00)
[2019-11-10] MEDS: MIRALAX *UNIT DOSE* 17GM PACKET PO SCH (08:13)
--- NOTE | 2019-11-10 10:23 | IPNPDOC ---
Subjective Date Seen The patient was seen on 11/10/19. Subjective Chief Complaint/HPI Patient's couple of any new complaints at the chair, possible transfer to subacute area facility General: Denies: ROS Unobtainable, Chills, Night Sweats, Fatigue, Malaise, Normal Appetite, Other Symptoms Skin: Denies: Rash, Lesions, Jaundice, Bruising, Itching, Dry, Breakdown, Nail Changes, Other Pulmonary: Denies: Dyspnea, Cough, Pleuritic Chest Pain, Other Symptoms Cardiovascular: Denies: Chest Pain, Palpitations, Orthopnea, Paroxysmal Noc. Dyspnea, Edema, Lt Headedness, Other Symptoms Gastrointestinal: Denies: Nausea, Vomiting, Abdominal Pain, Diarrhea, Constipation, Melena, Hematochezia, Other Symptoms Musculoskeletal: Denies: Neck Pain, Back Pain, Shoulder Pain, Arm Pain, Hand Pain, Leg Pain, Foot Pain, Joint Pain, Muscle Pain, Spasms, Other Symptoms Neurological: Denies: Weakness, Numbness, Incoordination, Change in speech, Confusion, Seizures, Other Symptoms Objective Physical Examination Chest Exam: Positive: Clear to auscultation, Normal air movement Heart Exam: Positive: Rate Normal, Normal S1, Normal S2 Abdomen Exam: Positive: Normal bowel sounds, Soft Extremity Exam: Positive: Normal pulses Skin Exam: Positive: Nl turgor and temperature Neuro Exam: Positive: Strength at 5/5 X4 ext, Cranial Nerves 3-12 NL Assessment /Plan Problems (1) Hip fracture, right Status: Acute Problem Text: Status post right hip ORIF Is ago therapy in progress Awaiting placement in subacute area facility Pain management Continue all present meds Plan/VTE VTE Prophylaxis Ordered?: Yes VS, I&O, 24H, [facility] Vital Signs/I&O Vital Signs Date Time Temp Pulse Resp B/P (MAP) Pulse Ox O2 Delivery O2 Flow Rate FiO2 11/10/19 09:51 16 11/10/19 06:00 97.4 88 149/83 (105) 95 Room Air 11/08/19 23:19 1.0 I&O- Last 24 Hours up to 6 AM 11/10/19 06:00 Intake Total 2230 ml Output Total 800 ml Balance 1430 ml Laboratory Data 24H LABS Laboratory Tests 2 11/10/19 06:08: Immature Granulocyte % (Auto) 0.3, Neutrophils (%) (Auto) 72.7H, Lymphocytes (%) (Auto) 12.7L, Monocytes (%) (Auto) 13.2H, Eosinophils (%) (Auto) 0.8, Basophils (%) (Auto) 0.3, Neutrophils # (Auto) 5.4, Lymphocytes # (Auto) 0.9L, Monocytes # (Auto) 1.0H, Eosinophils # (Auto) 0.1, Basophils # (Auto) 0.0, Nucleated Red Blood Cells % (auto) 0.0, Anion Gap 4L, Glomerular Filtration Rate > 60.0, Calcium Level 8.1L, Magnesium Level 2.0 CBC/BMP Laboratory Tests 11/10/19 06:08 SURYA SHIELDS MD Nov 10, 2019 10:22
[2019-11-10] MEDS: ACETAMINOPHEN TAB 650MG DOSE (2X325MG) PO PRN (11:22)
[2019-11-10 14:00] VITALS: BP 130/80
[2019-11-10] MEDS: RIVAROXABAN 10 MG TAB (XARELTO) PO SCH (18:12)
[2019-11-10 22:00] VITALS: BP 144/81
[2019-11-11] MEDS: traMADol 50 MG TAB PO PRN ×4 (00:02→20:54)
[2019-11-11 06:00] VITALS: BP 135/81
[2019-11-11 06:49] LABS: BASO % 0.3 % (0.0-1.0); EOS # 0.2 10^3/uL (0.0-0.5); EOS % 2.8 % (0.0-3.0); HEMATOCRIT 26.9 % (36.0-47.0); HEMOGLOBIN 8.9 g/dl (12.0-15.5); LYMPH # 1.5 10^3/uL (1.5-5.0); MEAN CORPUSCULAR HEMOGLOBIN 32.2 pg (27.0-33.0); MEAN CORPUSCULAR HGB CONC 33.1 g/dl (32.0-36.5); MEAN CORPUSCULAR VOLUME 97.5 fl (80.0-96.0); MONO % 15.7 % (0.0-5.0); NEUTROPHILS # 3.4 10^3/uL (1.5-8.5); NEUTROPHILS % 55.9 % (36.0-66.0); PLATELET COUNT, AUTOMATED 199 10^3/uL (150-450); RED BLOOD COUNT 2.76 10^6/uL (4.00-5.40); WHITE BLOOD COUNT 6.1 10^3/uL (4.0-10.0)
[2019-11-11 07:10] LABS: BLOOD UREA NITROGEN 7 MG/DL (7-18); CALCIUM LEVEL 7.9 MG/DL (8.8-10.2); CARBON DIOXIDE LEVEL 29 MEQ/L (21-32); CHLORIDE LEVEL 96 MEQ/L (98-107); CREATININE FOR GFR 0.38 MG/DL (0.55-1.30); GLOMERULAR FILTRATION RATE > 60.0 (>45); GLUCOSE, FASTING 103 MG/DL (70-100); MAGNESIUM LEVEL 1.8 MG/DL (1.8-2.4); POTASSIUM SERUM 3.5 MEQ/L (3.5-5.1); SODIUM LEVEL 131 MEQ/L (136-145)
[2019-11-11] MEDS ORDERED: XARE10TA PO (08:21)
[2019-11-11] MEDS: MIRALAX *UNIT DOSE* 17GM PACKET PO SCH (09:00)
[2019-11-11] MEDS: MOM 30ML SUSPENSION UDC PO SCH (09:00)
[2019-11-11] MEDS: MULTIVITAMINS/MINERALS THERAP 1 TAB PO SCH (09:13)
--- NOTE | 2019-11-11 10:43 | IPNPDOC ---
Subjective Date Seen The patient was seen on 11/11/19. Subjective Chief Complaint/HPI Patient comfortable. Physical therapy in progress. Offers no complaints General: Denies: ROS Unobtainable, Chills, Night Sweats, Fatigue, Malaise, Normal Appetite, Other Symptoms Constitutional: Denies: Chills, Fever, Malaise, Night Sweats, Weakness, Fatigue, Weight Loss, Lethargy, Other Pulmonary: Denies: Dyspnea, Cough, Pleuritic Chest Pain, Other Symptoms Cardiovascular: Denies: Chest Pain, Palpitations, Orthopnea, Paroxysmal Noc. Dyspnea, Edema, Lt Headedness, Other Symptoms Gastrointestinal: Denies: Nausea, Vomiting, Abdominal Pain, Diarrhea, Constipation, Melena, Hematochezia, Other Symptoms Musculoskeletal: Denies: Neck Pain, Back Pain, Shoulder Pain, Arm Pain, Hand Pain, Leg Pain, Foot Pain, Joint Pain, Muscle Pain, Spasms, Other Symptoms Neurological: Denies: Weakness, Numbness, Incoordination, Change in speech, Confusion, Seizures, Other Symptoms Objective Physical Examination Chest Exam: Positive: Clear to auscultation, Normal air movement Heart Exam: Positive: Rate Normal, Normal S1, Normal S2 Abdomen Exam: Positive: Normal bowel sounds, Soft Extremity Exam: Positive: Normal pulses Skin Exam: Positive: Nl turgor and temperature Neuro Exam: Positive: Strength at 5/5 X4 ext, Cranial Nerves 3-12 NL Assessment /Plan Problems (1) Hip fracture, right Status: Acute Problem Text: Status post right hip ORIF Physical therapy is in progress Patient is awaiting placement in subacute rehabilitation facility Pain management and DVT prophylaxis as per orders Continue all present meds Plan/VTE VTE Prophylaxis Ordered?: Yes VS, I&O, 24H, [facility] Vital Signs/I&O Vital Signs Date Time Temp Pulse Resp B/P (MAP) Pulse Ox O2 Delivery O2 Flow Rate FiO2 11/11/19 07:01 16 11/11/19 06:31 Room Air 11/11/19 06:00 98.9 90 135/81 (99) 97 11/08/19 23:19 1.0 I&O- Last 24 Hours up to 6 AM 11/11/19 06:00 Intake Total 1680 ml Balance 1680 ml Laboratory Data 24H LABS Laboratory Tests 2 11/11/19 06:22: Immature Granulocyte % (Auto) 0.3, Neutrophils (%) (Auto) 55.9, Lymphocytes (%) (Auto) 25.0, Monocytes (%) (Auto) 15.7H, Eosinophils (%) (Auto) 2.8, Basophils (%) (Auto) 0.3, Neutrophils # (Auto) 3.4, Lymphocytes # (Auto) 1.5, Monocytes # (Auto) 1.0H, Eosinophils # (Auto) 0.2, Basophils # (Auto) 0.0, Nucleated Red Blood Cells % (auto) 0.0, Anion Gap 6L, Glomerular Filtration Rate > 60.0, Calcium Level 7.9L, Magnesium Level 1.8 CBC/BMP Laboratory Tests 11/11/19 06:22 SURYA SHIELDS MD Nov 11, 2019 10:43
[2019-11-11] MEDS: ONDANSETRON 4 MG TAB (S0181) PO PRN ×2 (15:11→20:54)
[2019-11-11] MEDS: ACETAMINOPHEN TAB 650MG DOSE (2X325MG) PO PRN (15:12)
[2019-11-11] MEDS: RIVAROXABAN 10 MG TAB (XARELTO) PO SCH (20:53)
[2019-11-11 22:00] VITALS: BP 150/91
[2019-11-12] MEDS: traMADol 50 MG TAB PO PRN ×2 (02:40→14:28)
[2019-11-12] MEDS: ONDANSETRON 4 MG TAB (S0181) PO PRN (02:40)
[2019-11-12 06:00] VITALS: BP 123/78
[2019-11-12 07:15] LABS: BASO % 0.4 % (0.0-1.0); EOS # 0.1 10^3/uL (0.0-0.5); EOS % 2.8 % (0.0-3.0); HEMATOCRIT 26.9 % (36.0-47.0); HEMOGLOBIN 8.9 g/dl (12.0-15.5); LYMPH % 19.8 % (24.0-44.0); MEAN CORPUSCULAR HEMOGLOBIN 31.9 pg (27.0-33.0); MEAN CORPUSCULAR HGB CONC 33.1 g/dl (32.0-36.5); MEAN CORPUSCULAR VOLUME 96.4 fl (80.0-96.0); MONO # 0.8 10^3/uL (0.0-0.8); MONO % 15.8 % (0.0-5.0); PLATELET COUNT, AUTOMATED 232 10^3/uL (150-450); RED BLOOD COUNT 2.79 10^6/uL (4.00-5.40); WHITE BLOOD COUNT 4.9 10^3/uL (4.0-10.0)
[2019-11-12 07:30] LABS: BLOOD UREA NITROGEN 6 MG/DL (7-18); CALCIUM LEVEL 8.3 MG/DL (8.8-10.2); CARBON DIOXIDE LEVEL 29 MEQ/L (21-32); CHLORIDE LEVEL 98 MEQ/L (98-107); CREATININE FOR GFR 0.41 MG/DL (0.55-1.30); GLOMERULAR FILTRATION RATE > 60.0 (>45); GLUCOSE, FASTING 91 MG/DL (70-100); MAGNESIUM LEVEL 2.1 MG/DL (1.8-2.4); POTASSIUM SERUM 3.7 MEQ/L (3.5-5.1); SODIUM LEVEL 134 MEQ/L (136-145)
[2019-11-12] MEDS: MIRALAX *UNIT DOSE* 17GM PACKET PO SCH (07:38)
[2019-11-12] MEDS: MOM 30ML SUSPENSION UDC PO SCH (07:38)
[2019-11-12] MEDS: MULTIVITAMINS/MINERALS THERAP 1 TAB PO SCH (07:39)
[2019-11-12] MEDS: ACETAMINOPHEN TAB 650MG DOSE (2X325MG) PO PRN (10:00)
--- NOTE | 2019-11-12 15:20 | DS.PDOC ---
Discharge Summary General Date of Admission Nov 07, 2019 at 20:53 Date of Discharge 11/12/19 Discharge Summary PROCEDURES PERFORMED DURING STAY: None. ADMITTING DIAGNOSES: 1. Fall, right hip fracture . DISCHARGE DIAGNOSES: 1. Fall, right hip fracture. COMPLICATIONS/CHIEF COMPLAINT: Fall, Hip Fracture, Rt. HISTORY OF PRESENT ILLNESS: Patient is a 59-year-old female with no significant past medical history who presented to the emergency room after she had complained of significant right hip pain. Patient reported that today she was with her grandson who was standing on a chair. Patient reported that her grandson was about to fall out of the chair, so she went to go catch him and subsequently fell on her right hip and landed on the hardwood floor of her home. Patient reported that immediately she be ENT experience 10/10 pain, sharp / burning pain. Patient reported that the pain was occurring at her right hip and right groin. Patient reported that any movement caused worsening of the pain. The only alleviation that she noted was with medications received by EMS. Patient denied any loss of consciousness.. HOSPITAL COURSE: . . She was admitted to medical floor, patient was taken to or and had intramedullary taylor placed in the proximal femur. Patient had a physical therapy started as well as pain management was continued on the floor, once patient was stable from physical therapy. She'll be discharged to subacute rehabilitation facility today. Patient clinically stable. Offers no new complaints and will continue all her home medications as well DISCHARGE MEDICATIONS: Please see below. ALLERGIES: Please see below. PHYSICAL EXAMINATION ON DISCHARGE: VITAL SIGNS: Please see below. GENERAL: Within normal limits HEENT: PERRLA, extra ocular muscles intact NECK: Supple, no JVD, no lymphadenopathy CARDIOVASCULAR EXAMINATION: S1, S2, regular RESPIRATORY EXAMINATION: Clear to A&P ABDOMINAL EXAMINATION: Benign EXTREMITIES: No clubbing, cyanosis, edema SKIN: Normal NEUROLOGICAL EXAMINATION: . No focal motor sensory deficit PSYCHIATRIC EXAMINATION: Normal LABORATORY DATA: Please see below. IMAGING: Hip x-ray:Findings: Cross-table lateral portably obtained views demonstrate an intramedullary taylor in the proximal femur. The femoral neck pin appears centra lly located in the femoral head on the cross-table lateral view. Lateral skin rebeca are seen. PROGNOSIS: Good ACTIVITY: As tolerated. DIET: As tolerated DISCHARGE PLAN: Follow with orthopedics as outpatient DISPOSITION: [facility]. DISCHARGE INSTRUCTIONS: 1. As per discharge instructions. ITEMS TO FOLLOWUP ON ON OUTPATIENT: 1. Follow with orthopedic as an outpatient. DISCHARGE CONDITION: Stable. TIME SPENT ON DISCHARGE: 25 minutes. Vital Signs/I&Os Vital Signs Date Time Temp Pulse Resp B/P (MAP) Pulse Ox O2 Delivery O2 Flow Rate FiO2 11/12/19 14:28 20 11/12/19 06:00 98.5 102 123/78 (93) 98 Room Air 11/08/19 23:19 1.0 I&O- Last 24 Hours up to 6 AM 11/12/19 06:00 Intake Total 2900 ml Output Total 1200 ml Balance 1700 ml Laboratory Data Labs 24H Laboratory Tests 2 11/12/19 06:15: Immature Granulocyte % (Auto) 0.2, Neutrophils (%) (Auto) 61.0, Lymphocytes (%) (Auto) 19.8L, Monocytes (%) (Auto) 15.8H, Eosinophils (%) (Auto) 2.8, Basophils (%) (Auto) 0.4, Neutrophils # (Auto) 3.0, Lymphocytes # (Auto) 1.0L, Monocytes # (Auto) 0.8, Eosinophils # (Auto) 0.1, Basophils # (Auto) 0.0, Nucleated Red Blood Cells % (auto) 0.0, Anion Gap 7L, Glomerular Filtration Rate > 60.0, Calcium Level 8.3L, Magnesium Level 2.1 CBC/BMP Laboratory Tests 11/12/19 06:15 Discharge Medications Scheduled Multivitamin (Multivitamins) 1 Each Capsule, 1 CAP PO DAILY, (Reported) Rivaroxaban (Xarelto) 10 Mg Tablet, 10 MG PO DAILY Scheduled PRN Acetaminophen (Acetaminophen) 500 Mg Tablet, 1,000 MG PO Q8H PRN for BACK PAIN Tramadol HCl (Tramadol HCl) 50 Mg Tablet, 1-2 TAB PO Q4H PRN for PAIN Allergies Coded Allergies: morphine (Verified Allergy, Mild, 11/07/19) ciprofloxacin (Verified Allergy, Unknown, 11/07/19) erythromycin base (Verified Allergy, Unknown, 11/07/19) SURYA SHIELDS MD Nov 12, 2019 15:20
== END 2019-11-12 14:40 | DRG 481 ==
LOC: M ED 19:13 → M ED INP 20:53 → CANRESERV 21:29 → ENRESERVTM 21:29 → ENRESERVDT 21:29 → ENRESERVTM 22:13 → ENRESERVDT 22:13 → M MS5PR 22:40
PROVIDERS: ADMIT Internal Medicine; ATTEND Internal Medicine
PROC: 0QS604Z Reposition Right Upper Femur with Internal Fixation Device, Open Approach (ICD-10-PCS; principal; 2019-11-08 13:30)
DX: S72.141A Displaced intertrochanteric fracture of right femur, initial encounter for closed fracture (principal); E87.1 Hypo-osmolality and hyponatremia; W18.30XA Fall on same level, unspecified, initial encounter; Y92.009 Unspecified place in unspecified non-institutional (private) residence as the place of occurrence of the external cause; Z88.0 Allergy status to penicillin; Z88.5 Allergy status to narcotic agent; Z88.8 Allergy status to other drugs, medicaments and biological substances; D72.829 Elevated white blood cell count, unspecified

== ENCOUNTER → 2019-11-13 | Outpatient (REF) ==
[~2019-11-13] MED LIST: ACET-683 PO; MULTCAP PO; TRAM50TA2 PO; XARE10TA PO
== END ==
LOC: SKLAB4 09:49
PROVIDERS: ATTEND Internal Medicine
DX: Z53.9 Procedure and treatment not carried out, unspecified reason (principal)

== ENCOUNTER → 2019-11-16 | Outpatient (REF) ==
[2019-11-16 08:16] LABS: HEMATOCRIT 28.9 % (36.0-47.0); HEMOGLOBIN 9.5 g/dl (12.0-15.5); MEAN CORPUSCULAR HEMOGLOBIN 32.1 pg (27.0-33.0); MEAN CORPUSCULAR HGB CONC 32.9 g/dl (32.0-36.5); MEAN CORPUSCULAR VOLUME 97.6 fl (80.0-96.0); PLATELET COUNT, AUTOMATED 392 10^3/uL (150-450); RED BLOOD COUNT 2.96 10^6/uL (4.00-5.40); WHITE BLOOD COUNT 4.4 10^3/uL (4.0-10.0)
[2019-11-16 08:47] LABS: BLOOD UREA NITROGEN 7 MG/DL (7-18); CALCIUM LEVEL 8.4 MG/DL (8.8-10.2); CARBON DIOXIDE LEVEL 27 MEQ/L (21-32); CHLORIDE LEVEL 101 MEQ/L (98-107); CREATININE FOR GFR 0.44 MG/DL (0.55-1.30); GLOMERULAR FILTRATION RATE > 60.0 (>45); GLUCOSE, FASTING 87 MG/DL (70-100); POTASSIUM SERUM 4.1 MEQ/L (3.5-5.1); SODIUM LEVEL 135 MEQ/L (136-145)
[2019-11-16 10:33] LABS: CORTISOL AM 23.2 UG/DL (4.3-22.4); TOTAL 25(OH) VITAMIN D 33.4 NG/ML (30.0-100.0)
== END ==
LOC: SKLAB4 08:37
PROVIDERS: ATTEND Internal Medicine
DX: D64.9 Anemia, unspecified (principal)

== ENCOUNTER → 2019-11-19 | Outpatient (REF) ==
[2019-11-19 08:55] LABS: BLOOD UREA NITROGEN 8 MG/DL (7-18); CALCIUM LEVEL 8.6 MG/DL (8.8-10.2); CARBON DIOXIDE LEVEL 28 MEQ/L (21-32); CHLORIDE LEVEL 100 MEQ/L (98-107); CREATININE FOR GFR 0.44 MG/DL (0.55-1.30); GLOMERULAR FILTRATION RATE > 60.0 (>45); GLUCOSE, FASTING 86 MG/DL (70-100); MAGNESIUM LEVEL 2.2 MG/DL (1.8-2.4); POTASSIUM SERUM 3.8 MEQ/L (3.5-5.1); SODIUM LEVEL 135 MEQ/L (136-145)
== END ==
LOC: SKLAB4 07:19
PROVIDERS: ATTEND Internal Medicine
DX: M62.838 Other muscle spasm (principal)

== ENCOUNTER → 2019-11-23 | Outpatient (REF) ==
[2019-11-23 07:47] LABS: HEMATOCRIT 32.7 % (36.0-47.0); HEMOGLOBIN 10.5 g/dl (12.0-15.5); MEAN CORPUSCULAR HEMOGLOBIN 31.8 pg (27.0-33.0); MEAN CORPUSCULAR HGB CONC 32.1 g/dl (32.0-36.5); MEAN CORPUSCULAR VOLUME 99.1 fl (80.0-96.0); PLATELET COUNT, AUTOMATED 476 10^3/uL (150-450); WHITE BLOOD COUNT 3.5 10^3/uL (4.0-10.0)
[2019-11-23 08:11] LABS: BLOOD UREA NITROGEN 8 MG/DL (7-18); CREATININE FOR GFR 0.46 MG/DL (0.55-1.30); GLUCOSE, FASTING 89 MG/DL (70-100)
[2019-11-23 08:12] LABS: CALCIUM LEVEL 9.1 MG/DL (8.8-10.2); CARBON DIOXIDE LEVEL 32 MEQ/L (21-32); CHLORIDE LEVEL 100 MEQ/L (98-107); GLOMERULAR FILTRATION RATE > 60.0 (>45); POTASSIUM SERUM 4.2 MEQ/L (3.5-5.1); SODIUM LEVEL 137 MEQ/L (136-145)
== END ==
LOC: SKLAB4 10:14
PROVIDERS: ATTEND Internal Medicine
DX: D64.9 Anemia, unspecified (principal)

== ENCOUNTER → 2020-01-19 | Outpatient (RCR) | payer OTHER | LOC: M PT 12-31 13:28 | PROVIDERS: ATTEND Internal Medicine | DX: S72.101D Unspecified trochanteric fracture of right femur, subsequent encounter for closed fracture with routine healing (principal); X58.XXXD Exposure to other specified factors, subsequent encounter ==

== ENCOUNTER 2020-02-16 13:45 | Outpatient (RCR) | payer MEDICAID, OTHER, SELFPAY | END 2020-02-18 | LOC: M PT 13:45 | PROVIDERS: ATTEND Internal Medicine | DX: S72.101D Unspecified trochanteric fracture of right femur, subsequent encounter for closed fracture with routine healing (principal); X58.XXXD Exposure to other specified factors, subsequent encounter ==

== ENCOUNTER 2020-03-17 15:15 | Outpatient (RCR) | payer OTHER | END 2020-03-20 | LOC: M PT 15:15 | PROVIDERS: ATTEND Internal Medicine | DX: S72.101D Unspecified trochanteric fracture of right femur, subsequent encounter for closed fracture with routine healing (principal) ==